=== PATIENT | male | born 1990 | race Caucasian/White ===

== ENCOUNTER 2019-02-27 09:52 | Emergency (ER) | payer OTHER ==
[2019-02-27] MEDS ORDERED: KETOROLAC TROMETHAMINE INJ/PF 30 MG/1 ML SDV IV ONE (10:03)
[2019-02-27] MEDS ORDERED: DIPHENHYDRAMINE HCL 50 MG/ML VIAL IV ONE (10:03)
[2019-02-27] MEDS ORDERED: PROCHLORPERAZINE EDISYLATE INJ 10 MG/2 ML VIAL IV ONE (10:03)
[2019-02-27] MEDS ORDERED: NORMAL SALINE 500 ML IV ONE (10:03)
--- NOTE | 2019-02-27 10:08 | ER Document Report ---
ED General - General TRAVEL OUTSIDE OF THE [place] IN LAST 30 DAYS: No <JJ LAWSON - Last Filed: 02/27/19 11:35> <ARGENIS CLARK - Last Filed: 02/27/19 11:49> - General Stated Complaint: HEAD PAIN Time Seen by Provider: 02/27/19 09:58 Primary Care Provider: VALENTE SWIFT MD [NO LOCAL MD] - Follow up as needed RAH TREJO MD [NO LOCAL MD] - Follow up as needed - HPI Notes: Patient is a 29-year-old male with a history of TBI and chronic recurrent headaches who presents to the emergency department complaining of headache that began this morning that starts in the back left occiput area and radiates up and around his head to behind his eye. Patient states that he does have associated light sensitivity. Patient states that he started getting occasional spasming in his legs and arms bilaterally as well. Patient states that his symptoms are similar to previous headaches and was not maximal at onset. This is not the worst headache of his life and it did not start as a 'thunderclap.'Patient states that he is still able to eat and drink without difficulty. He is urinating normally and having normal bowel movements. Denies any drug or alcohol involvement. Denies any fever, head injury, neck pain, changes in vision/speech/mentation/hearing, URI, sore throat, chest pain, palpitations, syncope, cough, shortness of breath, wheeze, dyspnea, abdominal pain, nausea/vomiting/diarrhea, urinary retention, dysuria, hematuria, loss of control of bowel or bladder, numbness/tingling, saddle anesthesia, muscle paralysis/weakness, or rash. (JJ LAWSON) - Related Data Allergies/Adverse Reactions: No Known Allergies Allergy (Verified 02/27/19 10:17) Past Medical History - Social History Smoking Status: Never Smoker Family History: Reviewed & Not Pertinent <JJ LAWSON - Last Filed: 02/27/19 11:35> Review of Systems - Review of Systems -: Yes All other systems reviewed and negative <JJ LAWSON - Last Filed: 02/27/19 11:35> Physical Exam <JJ LAWSON - Last Filed: 02/27/19 11:35> - Vital signs Vitals: Temp Pulse Resp BP Pulse Ox 98.5 F 85 16 165/90 H 98 02/27/19 09:55 02/27/19 09:55 02/27/19 09:55 02/27/19 09:55 02/27/19 09:55 - Notes Notes: PHYSICAL EXAMINATION: GENERAL: Well-appearing, well-nourished and in no acute distress. A&Ox4. Answers questions appropriately. HEAD: Atraumatic, normocephalic. Non-tender. EYES: Pupils equal round and reactive to light, extraocular movements intact, sclera anicteric, conjunctiva are normal. No nystagmus. vis plata intact. ENT: EAC clear b/l. TM's intact b/l without erythema, fluid, or perforation. Nares patent and without discharge. oropharynx clear without exudates. No tonsilar hypertrophy or erythema. Moist mucous membranes. No sinus tenderness. NECK: Normal range of motion, supple without lymphadenopathy. No rigidity/meningismus. No midline tenderness. LUNGS: Breath sounds clear to auscultation bilaterally and equal. No wheezes rales or rhonchi. HEART: Regular rate and rhythm without murmurs, rubs, gallops. ABDOMEN: Soft, nontender, nondistended abdomen. No guarding, no rebound. Normal bowel sounds present. No CVA tenderness bilaterally. Musculoskeletal: Ext's b/l: FROM to passive/active. Strength 5+/5. No deficits noted. No bony tenderness of extremities. Extremities: No cyanosis, clubbing, or edema b/l. Peripheral pulses 2+. Capillary refill less than 2 seconds. NEUROLOGICAL: NIH 0. GCS 15. Cranial nerves grossly intact. Normal speech, normal gait. Normal sensory, motor exams. Reflexes 2+ b/l. KASSI's negative. Pronator drift negative. Heel/valdez, finger/nose wnl. PSYCH: Normal mood, normal affect. SKIN: Warm, Dry, normal turgor, no rashes or lesions noted. (JJ LAWSON) Course - Laboratory Result Diagrams: 02/27/19 10:20 02/27/19 10:20 <JJ LAWSON - Last Filed: 02/27/19 11:35> - Laboratory Result Diagrams: 02/27/19 10:20 02/27/19 10:20 <ARGENIS CLARK - Last Filed: 02/27/19 11:49> - Re-evaluation Re-evalutation: 02/27/19 Patient is an afebrile, well-hydrated, 44-year-old female who presents to the ED with a headache, suspect occipital neuritis. Vitals are acceptable without any significant tachycardia, tachypnea, or hypoxia. PE is otherwise unremarkable for any focal neurological deficits. NIH 0, GCS 15, cranial nerves grossly intact. Patient has had headaches like this in the past recently. CBC, CMP, CK unremarkable. No other labs or imaging warranted at this time based on H&P. Patient was given Toradol, Compazine, fluids, and benadryl which has resolved the headache. Patient states that he is feeling much better and would like to go home. He is nontoxic-appearing and is tolerating p.o. without any difficulties. Low suspicion for any acute glaucoma, temporal arteritis, meningitis, intracranial hemorrhage, ischemic stroke, or fracture at this time. Patient is aware that this condition can change from initial presentation and that he needs to monitor symptoms closely for any acute changes. Recheck with your PCM/neurologist in 3-5 days. Return to the ED with any worsening/concerning symptoms otherwise as reviewed in discharge. Patient is in agreement. (JJ LAWSON) 02/27/19 11:49 I personally and independently obtained patient history and examined the patient and have reviewed the APC's note, reviewed, discussed and agree with their assessment and plan. HISTORY OF PRESENT ILLNESS: Patient is a 29-year-old male that presents to the emergency department for chief complaint of headache. Patient does report this headache feeling similar to prior headaches he has had in the past. MEDICAL DECISION MAKING: Patient was seen and evaluated by myself independently. He is resting comfortably in the cot and in no acute distress. He states he feels anxious and ready to leave the emergency room. He states his headache has resolved. He has no focal neurologic deficits on exam. He is stable for discharge Please review detail APC documentation. *Note is created using voice recognition software and may contain spelling, syntax or grammatical errors. (ARGENIS CLARK) - Vital Signs Vital signs: Temp Pulse Resp BP Pulse Ox 98.5 F 85 16 136/83 H 97 02/27/19 09:55 02/27/19 09:55 02/27/19 11:01 02/27/19 11:01 02/27/19 11:01 Discharge <JJ LAWSON - Last Filed: 02/27/19 11:35> <ARGENIS CLARK - Last Filed: 02/27/19 11:49> - Discharge Clinical Impression: Headache Qualifiers: Headache type: unspecified Headache chronicity pattern: acute headache In tractability: not intractable Qualified Code(s): R51 - Headache Condition: Stable Disposition: HOME, SELF-CARE Instructions: Headache ([facility]) Additional Instructions: Rest, Ice/cool compress Tylenol/ibuprofen as needed Light stretches daily Strength exercises as able Moist heat and massage may help F/u with your PCP in 3-5 days for a recheck Consider consult(s) with Neurology for ongoing/worsening symptoms Return to the ED with any worsening symptoms and/or development of fever, headache, changes in behavior/mentation/vision/speech, chest pain, palpitations, syncope, shortness of breath, trouble breathing, abdominal pain, n/v/d, blood in stool/urine, loss of control of bowel/bladder, urinary retention, muscle weakness/paralysis, saddle anesthesia, numbness/tingling, or other worsening symptoms that are concerning to you. Forms: Elevated Blood Pressure Referrals: VALENTE SWIFT MD [NO LOCAL MD] - Follow up as needed RAH TREJO MD [NO LOCAL MD] - Follow up as needed
[2019-02-27 10:54] LABS: ABSOLUTE EOSINOPHILS # (AUTO) 0.1 10^3/uL (0.0-0.6); ABSOLUTE LYMPHOCYTES (AUTO) 1.2 10^3/uL (0.5-4.7); ABSOLUTE MONOCYTES (AUTO) 0.3 10^3/uL (0.1-1.4); ABSOLUTE NEUT (AUTO) 2.6 10^3/uL (1.7-8.2); BASOPHILS % (AUTO) 0.7 % (0-2); EOSINOPHILS % (AUTO) 2.8 % (0-6); HEMATOCRIT 45.5 % (37.9-51.0); LYMPHOCYTES % (AUTO) 27.8 % (13-45); MEAN CORPUSCULAR HEMOGLOBIN 31.8 pg (27.0-33.4); MEAN CORPUSCULAR HGB CONC 35.3 g/dL (32.0-36.0); MEAN CORPUSCULAR VOLUME 90 fl (80-97); MONOCYTES % (AUTO) 6.7 % (3-13); PLATELET COUNT 218 10^3/uL (150-450); RED BLOOD COUNT 5.05 10^6/uL (4.35-5.55); RED CELL DISTRIBUTION WIDTH 12.7 % (11.5-14.0); TOTAL CELLS COUNTED % (AUTO) 100 %; WHITE BLOOD COUNT 4.2 10^3/uL (4.0-10.5)
[2019-02-27 11:21] LABS: ALANINE AMINOTRANSFERASE 29 U/L (21-72); ALKALINE PHOSPHATASE 42 U/L (38-126); ANION GAP 11 (5-19); ASPARTATE AMINO TRANSFERASE 22 U/L (17-59); BILIRUBIN,DIRECT 0.3 mg/dL (0.0-0.4); BILIRUBIN,TOTAL 0.5 mg/dL (0.2-1.3); BLOOD UREA NITROGEN 17 mg/dL (7-20); CARBON DIOXIDE 24 mmol/L (22-30); CHLORIDE 106 mmol/L (98-107); CREATINE KINASE 130 U/L (55-170); GLUCOSE 95 mg/dL (75-110); POTASSIUM 4.4 mmol/L (3.6-5.0); SODIUM 140.6 mmol/L (137-145); TOTAL PROTEIN 6.3 g/dL (6.3-8.2)
[2019-02-27 12:04] VITALS: BP 142/87
== END 2019-02-27 12:06 | disposition home or self-care (01) ==
LOC: ER 09:52
DX: R51 Headache (principal)
CPT/HCPCS: 99284; 96361; 96374; 96375; 36415; 82550; 85025; 80053; J1200; J1885; J0780; J7040